=== PATIENT | male | born 1980 | race Caucasian/White ===

== ENCOUNTER 2016-04-28 10:47 | Emergency (ER) | payer OTHER ==
[2016-04-28 11:18] VITALS: BP 132/76; PULSE 89; RESP 20; TEMP 98.1; O2SAT 95
--- NOTE | 2016-04-28 12:35 | DX ---
Lumbar Spine, 4 Views, at 12 Noon Clinical History: 35-year-old male in the Emergency Department complaining of low back pain radiatin g down the right leg. Comparison Study: None. Findings: There are 5 nonrib-bearing lumbar-type vertebral bodies. The vertebral body heights and pos terior alignments are maintained. There is some slight loss of the normal lumbar lordosis, which may reflect some underlying muscle spasm. There is mild disk space narrowing at L5-S1. There is some mild facet hypertrophy in the [id number]-mt-[id number] lumbar spine. The interpediculate distances are normal. The sa cral arcuate lines are well-contoured, and the SI joints appear normal. Impression: 1. Secondary indicator of underlying muscle spasm. 2. Mild degenerative disk space narrowing at L5-S1. If there is further clinical concern regarding the patient's lumbago and right radicular symptoms, MR imaging could be considered.
--- NOTE | 2016-04-28 13:06 | UCPHY ---
H & P Patient Type: Established Smoking Status: Never smoked Time Seen by Provider: 04/28/16 11:19 HPI/ROS: CHIEF COMPLAINT: Back pain HISTORY OF PRESENT ILLNESS: 35-year-old male presents to the urgent care with low back pain. Patient states over the last nearly 1 month he has had pain in his lower back which has become worse over last 3 4 days. He denies any known trauma or injury. Has had problems with his back in the past and it typically resolves within a couple of days. He has pain especially with walking and certain movements. He denies bowel or bladder incontinence. He does occasionally have pain that goes down his right leg or into his right buttock area. He denies bowel or bladder incontinence. He denies numbness or tingling in his lower legs or feelings of weakness in his lower legs. He denies chest pain or difficulty breathing. Denies symptoms in the left lower extremity. He has taken ibuprofen and Tylenol without relief. REVIEW OF SYSTEMS: Constitutional: No fever, no chills. Eyes: No double or blurry vision. ENT: No sore throat. Respiratory: No cough, no shortness of breath. Cardiac: No chest pain. Gastrointestinal: No abdominal pain, vomiting or diarrhea. Genitourinary: No dysuria. Musculoskeletal: Back pain as above. No neck pain. Skin: No rashes. Neurological: No headache. (Zahraa Peters) Past Medical/Surgical History: Myocardial infarction age 31 (Zahraa Peters) Social History: (Zahraa Peters) Physical Exam: General Appearance: Alert, no distress. 132/76, 36.7, 95% on room air. No apparent distress. His at bedside. Eyes: Pupils equal and round. Extraocular motions are all intact. ENT: Mouth: Mucous membranes moist. Respiratory: No wheezing, rhonchi, or rales, lungs are clear to auscultation. Cardiovascular: Regular rate and rhythm. Gastrointestinal: Abdomen is soft and nontender, no masses, no rebound or guarding, bowel sounds normal. Neurological: Alert and oriented x 3, cranial nerves II through XII grossly intact Skin: Warm and dry, no rashes. Musculoskeletal: Nontender to palpate along cervical or thoracic spine. His neck is supple. He does have some mild pain with palpation the very lower lumbar spine into the sacral spine. No palpable crepitus or other bony abnormality. Straight leg raise is negative bilaterally. Reflexes are 1+ and equal for the lower extremities bilaterally. He has normal and equal strength for the lower extremities bilaterally. He has normal heel-toe walking. He is unable to bend down to touch his toes secondary to pain. He is able to do a deep knee bend or squat unassisted without any real discomfort. Extremities: Full range of motion and no peripheral edema. Psychiatric: Patient is oriented X 3, there is no agitation. (Zahraa Peters) Constitutional: Initial Vital Signs Temperature (C) 36.7 C 04/28/16 11:16 Heart Rate 89 04/28/16 11:16 Respiratory Rate 20 04/28/16 11:16 Blood Pressure 132/76 H 04/28/16 11:16 O2 Sat (%) 95 04/28/16 11:16 O2 Delivery Mode Room Air Allergies/Adverse Reactions: No Known Allergies Allergy (Verified 04/28/16 11:18) Home Medications: Medication Instructions Recorded Aspirin EC [Aspirin EC 81 mg (OTC)] 81 mg PO DAILY 02/22/12 Nitroglycerin [Nitrostat 0.4 mg 0.4 mg SL PRN PRN 02/22/12 (RX)] Atorvastatin Calcium 04/18/15 Omeprazole 04/18/15 Diazepam [Valium] 5 mg PO TIDPRN PRN #15 tab 04/28/16 methylPREDNISolone [Medrol Dose 1 each PO AD #0 ea 04/28/16 Giancarlo] oxyCODONE/APAP 5/325 [Percocet 1 - 2 tab PO Q4-6PRN PRN #15 tab 04/28/16 5/325] Medical Decision Making ED Course/Re-evaluation: 35-year-old male presents with low back pain over last few weeks. His pain is clearly worse with movement. X-rays revealed degenerative changes at L5-S1 without any other abnormalities. The patient will be treated with Medrol Dosepak, Valium, Percocet and he will continue ibuprofen. He was given referral to the neurosurgeon on-call, Dr. Brian. He was instructed to return if he developed numbness or tingling in his lower legs, bowel or bladder incontinence, or if he had any other concerns. He was comfortable with this plan. (Zahraa Peters) Differential Diagnosis: Back pain including but not limited to muscular pain, herniated disc, spine fracture, intra-abdominal causes and urinary tract infection. (Zahraa Peters) Other Provider: The patient wasevaluatedand managed by themidlevel provider. Idiscussed the patient's presentation and course with thephysicianassistantor nurse practitionerand agree with theevaluation. My co-signature indicates that I have reviewed this chart and I agree with the findings and plan of care as documented. I am the secondary supervisingphysician. (Janina Chase) Departure - Departure Disposition: Home, Routine, Self-Care Clinical Impression: Low back pain Condition: Good Instructions: Low Back Strain (ED), Back Pain (ED) Additional Instructions: Medrol Dosepak as directed for 1 week. Valium as needed for muscular spasm. Ibuprofen 600 mg every 8 hours as needed for pain. Percocet for severe pain as directed. Referrals: Javier Stephens MD [Primary Care Provider] - 2-3 days without fail Jose Alejandro Brian MD [Medical Doctor] - As per Instructions (Neurosurgeon on-call) Prescriptions: methylPREDNISolone [Medrol Dose Giancarlo] 1 each PO AD #0 ea oxyCODONE/APAP 5/325 [Percocet 5/325] 1 - 2 tab PO Q4-6PRN PRN #15 tab PRN Reason: For Moderate To Severe Pain Diazepam [Valium] 5 mg PO TIDPRN PRN #15 tab PRN Reason: Spasms - PQRS PQRS Measurement: Not applicable (Zahraa Peters)
== END 2016-04-28 13:40 | disposition home or self-care (01) ==
LOC: CED 10:47
DX: M54.5 Low back pain (principal); I25.2 Old myocardial infarction
CPT/HCPCS: 72100-PO; 99214-PO; G0463-PO